=== PATIENT | male | born 1935 | race Caucasian/White ===

== ENCOUNTER 2019-05-12 16:11 | Emergency (ER) | payer MEDICARE ==
--- NOTE | 2019-05-12 16:21 | ED Physician Documentation ---
History of Present Illness - Stated complaint Stated Complaint: LFT WRIST INJ - Chief complaint Chief Complaint: Ext Problem - History obtained from History obtained from: Patient - History of Present Illness Timing: Prior to arrival - Additonal information Additional information: Patient is a right-handed 84-year-old male with history of hypertension presenting with isolated left wrist injury after accidental fall backwards onto an outstretched hand just prior to arrival. Patient reports he tripped over a hose and tried to catch himself. Patient denies striking of head or loss of consciousness, as well as any other injuries. 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 Patient does have limited range of motion due to deformity at that location. No abrasions or lacerations. No anticoagulants except for baby aspirin. No other improving or worsening factors noted. Review of Systems Skin: denies: Abrasion (s), Laceration (s) Musculoskeletal: reports: Extremity pain, Joint pain, Joint swelling. denies: Extremity swelling PD PAST MEDICAL HISTORY - Past Medical History Past Medical History: Yes Cardiovascular: Hypertension - Past Surgical History Past Surgical History: No - Present Medications Home Medications: Ambulatory Orders Medication Instructions Recorded Confirmed Hydrocodone/Acetaminophen 1 - 2 each PO Q6H PRN #14 tablet 05/12/19 [Hydrocodon-Acetaminophen 5-325] - Allergies Allergies/Adverse Reactions: Allergies Allergy/AdvReac Type Severity Reaction Status Date / Time Penicillins AdvReac Anaphylaxis Verified 05/12/19 16:19 PD ED PE NORMAL - Vitals Vital signs reviewed: Yes - General General: Alert and oriented X 3, No acute distress, Well developed/nourished - HEENT HEENT: Atraumatic, Moist mucous membranes - Cardiac Cardiac: Strong equal pulses - Respiratory Respiratory: No respiratory distress - Derm Derm: Normal color, Warm and dry, No rash - Extremities Extremities: No: No deformity ([place]-neck deformity to left wrist with tenderness to palpation on the ventral aspect. Remainder of left upper extremity within normal limits.), No tenderness to palpate - Neuro Neuro: Alert and oriented X 3, No motor deficit, No sensory deficit - Psych Psych: Normal mood, Normal affect Results - Vitals Vitals: Vital Signs - 24 hr 05/12/19 05/12/19 16:15 19:21 Temperature 35.9 C L Heart Rate 55 L 48 L Respiratory 19 18 Rate Blood Pressure 150/87 H 170/81 H O2 Saturation 99 98 Oxygen O2 Source Room air Procedures - Splint (location) Upper extremity left Splint applied by: Physician, Tech Type of splint: Fiberglass, Sugar tong Other: Patient tolerated well, No complications, Neurovascular intact, Good alignment, Sling provided - Reduction Body part reduced: Left, Wrist Fracture or dislocation: Fracture dislocation Anesthesia: Hematoma block Reduction aftercare: NV intact, Xray confirms reduction, Alignment improved, Splint applied, Sling, Patient tolerated well PD MEDICAL DECISION MAKING - ED course Complexity details: reviewed results, re-evaluated patient, considered differential, d/w patient, d/w family, d/w business system consultant ED course: Patient presenting with dislocation and fracture of left wrist. Ice applied and patient otherwise relatively comfortable. Hematoma block performed and successful reduction of dislocation was achieved and splint placed in ED without complication. Postreduction films indicated near anatomical alignment. Sling also provided. Contacted [facility] and arrange for follow-up appointment with orthopedics tomorrow. Patient and advised on sling care, splint care, medications, supportive cares, return precautions, and follow-up. Both voiced understanding and are comfortable with discharge plan. Departure - Departure Disposition: 01 Home, Self Care Clinical Impression: Radius fracture Condition: Good Instructions: ED Fx Upper Ext Prescriptions: Hydrocodone/Acetaminophen [Hydrocodon-Acetaminophen 5-325] 1 - 2 each PO Q6H PRN #14 tablet PRN Reason: pain Comments: Please keep splint in place, clean, dry. May use Nemacolin as prescribed for pain relief but do not combine with alcohol, Tylenol, or driving. If taking Nemacolin regularly, recommend stool softener or laxative to avoid constipation. If not taking Nemacolin, may use ibuprofen/Tylenol. Also recommend elevation and ice application. Please go to [facility] clinic tomorrow, specifically the [facility] on the third floor for orthopedics. Appointment is at 9 AM, but they request you being there at 8:30 AM. For questions, please contact [facility]. Otherwise, return to ED sooner if experience worsening symptoms or have other concerns. Discharge Date/Time: 05/12/19 19:26
--- NOTE | 2019-05-12 17:21 | XRAY Report ---
Reason: FOSH injury to left wrist with deformity Procedure Date: 05/12/2019 Accession Number: [id number] / [id number] Procedure: XR - Wrist 4 View LT CPT Code: FULL RESULT: EXAM: LEFT WRIST RADIOGRAPHY EXAM DATE: 05/12/2019 04:57 PM. CLINICAL HISTORY: Fall. COMPARISON: None. TECHNIQUE: 4 views. FINDINGS: Bones: There is dorsally displaced and angulated fracture through the distal left radius. There is approximately 0.8 cm dorsal displacement and 30 degrees angulation. There is likely minimally displaced fracture through the ulnar styloid. Joints: Radiocarpal articulation is maintained. Soft Tissues: No unexpected soft tissue findings. IMPRESSION: Dorsally displaced and angulated fracture through the distal left radius. Radiocarpal articulation is maintained. RADIA
--- NOTE | 2019-05-12 18:35 | XRAY Report ---
Reason: attempted reduction, splint placement Procedure Date: 05/12/2019 Accession Number: [id number] / [id number] Procedure: XR - Wrist 3 View LT CPT Code: FULL RESULT: EXAM: WRIST RADIOGRAPHY EXAM DATE: 05/12/2019 06:06 PM. CLINICAL HISTORY: Attempted reduction, splint placement. COMPARISON: WRIST 4 VIEW LT 05/12/2019 4:43 PM. TECHNIQUE: 3 views. FINDINGS: Status post reduction with near anatomical alignment between the fracture fragments. Radiocarpal joints are well aligned. IMPRESSION: Status post reduction with near anatomical alignment between the dominant fracture fragments. RADIA
[2019-05-12 19:22] VITALS: BP 170/81
== END 2019-05-12 19:26 | disposition home or self-care (01) ==
LOC: ED 16:11
DX: S52.502A Unspecified fracture of the lower end of left radius, initial encounter for closed fracture (principal); W01.0XXA Fall on same level from slipping, tripping and stumbling without subsequent striking against object, initial encounter; I10 Essential (primary) hypertension
CPT/HCPCS: 25605; 99283; 99284

== ENCOUNTER 2021-12-21 18:04 | Outpatient (CLI) | payer MEDICARE | END 2021-12-21 18:05 | disposition critical access hospital (66) | LOC: EMS 18:04 | DX: M54.50 Low back pain, unspecified (principal); W11.XXXA Fall on and from ladder, initial encounter; Y92.009 Unspecified place in unspecified non-institutional (private) residence as the place of occurrence of the external cause | CPT/HCPCS: A0425; A0429 ==

== ENCOUNTER 2021-12-21 18:19 | Emergency (ER) | payer MEDICARE ==
[2021-12-21] MEDS ORDERED: KETOROLAC 15 MG/ML VIAL IVP STA (18:26)
[2021-12-21] MEDS ORDERED: HYDROmorphone 1 MG/ML CARPUJECT IVP STA (18:26)
--- NOTE | 2021-12-21 18:27 | ED Physician Documentation ---
PD HPI Fall - Stated complaint Stated Complaint: FELL FROM LADDER, LOWER BACK PAIN - History obtained from History obtained from: Patient - Additional information Additional information: 86-year-old gentleman with hypertension was putting shingles up on a shed. He was stepping from 1 ladder to another about 6 feet up and the ladder tilted and fell. He landed on his butt and posterior left pelvis and has mild pain there at rest but significant when moving. He has not been ambulatory since the fall. He remembers the whole injury and did not hit his head. He has no other injuries. Review of Systems Ten Systems: 10 systems reviewed and negative Constitutional: denies: Fever, Chills Cardiac: denies: Chest pain / pressure, Palpitations Respiratory: denies: Dyspnea, Cough PD PAST MEDICAL HISTORY - Past Medical History Cardiovascular: Hypertension Respiratory: None Neuro: None Endocrine/Autoimmune: None GI: None : Other HEENT: None Psych: None Musculoskeletal: None Derm: None - Past Surgical History Past Surgical History: No HEENT: Tonsil/Adenoidectomy - Present Medications Home Medications: Ambulatory Orders Medication Instructions Recorded Confirmed Furosemide [Lasix] 40 mg PO DAILY 12/21/21 12/21/21 Lisinopril [Zestril] 20 mg PO DAILY 12/21/21 12/21/21 - Allergies Allergies/Adverse Reactions: Allergies Allergy/AdvReac Type Severity Reaction Status Date / Time Penicillins AdvReac Anaphylaxis Verified 12/21/21 18:31 - Social History Does the pt smoke?: No Smoking Status: Never smoker Does the pt drink ETOH?: Yes Does the pt have substance abuse?: No - Immunizations Immunizations are current?: Yes - POLST Patient has POLST: No PD ED PE NORMAL - Vitals Vital signs reviewed: Yes - General General: Alert and oriented X 3, No acute distress - HEENT HEENT: PERRL, EOMI, Other (Sequela of prior cataract repair) - Neck Neck: Supple, no meningeal sign, No bony TTP, C-Spine cleared by NEXUS criteria - Cardiac Cardiac: RRR, No murmur - Respiratory Respiratory: No respiratory distress, Clear bilaterally - Abdomen Abdomen: Non tender - Back Back: Other (Tender to the low L-spine and sacrum as well as the left posterior pelvic brim. He is tender with lateral compression of the pelvis but there is no laxity or give to it.) - Derm Derm: Normal color, Warm and dry - Extremities Extremities: Other (No left hip tenderness and no tenderness about any other major joint.) - Neuro Neuro: Alert and oriented X 3, No motor deficit, No sensory deficit, Normal speech Eye Opening: Spontaneous Motor: Obeys Commands Verbal: Oriented GCS Score: 15 - Psych Psych: Normal mood, Normal affect Results - Vitals Vitals: Vital Signs - 24 hr 12/21/21 12/21/21 12/21/21 18:26 18:55 18:56 Temperature 36.0 C L Heart Rate 86 50 L 49 L Respiratory 18 12 13 Rate Blood Pressure 194/111 H 169/73 H 169/77 H O2 Saturation 99 100 100 12/21/21 12/21/21 12/21/21 19:40 19:42 19:45 Temperature Heart Rate 51 L Respiratory 15 Rate Blood Pressure 65/44 L 72/54 L 96/50 L O2 Saturation 98 100 12/21/21 12/21/21 12/21/21 20:00 20:20 20:38 Temperature Heart Rate 45 L 18 L Respiratory 12 16 Rate Blood Pressure 120/71 138/70 H 152/80 H O2 Saturation 100 100 Oxygen O2 Source Room air - Labs Labs: Laboratory Tests 12/21/21 12/21/21 12/21/21 18:49 18:49 18:49 WBC 11.2 H RBC 3.91 L Hgb 12.4 L Hct 35.9 L MCV 91.8 MCH 31.7 H MCHC 34.5 RDW 12.7 Plt Count 121 L MPV 12.9 H Neut # (Auto) 8.8 H Lymph # (Auto) 1.3 L Garrett # (Auto) 0.9 Eos # (Auto) 0.0 Baso # (Auto) 0.0 Absolute Nucleated RBC 0.00 Nucleated RBC % 0.0 PT 12.4 INR 1.1 Sodium 138 Potassium 3.6 Chloride 103 Carbon Dioxide 26 Anion Gap 9.0 BUN 33 H Creatinine 1.4 H Estimated GFR (MDRD) 48 L Glucose 135 H Calcium 9.3 SARS-CoV-2 (PCR) Blood Type Blood Type Recheck Antibody Screen 12/21/21 12/21/21 12/21/21 18:49 19:40 20:13 WBC RBC Hgb Hct MCV MCH MCHC RDW Plt Count MPV Neut # (Auto) Lymph # (Auto) Garrett # (Auto) Eos # (Auto) Baso # (Auto) Absolute Nucleated RBC Nucleated RBC % PT INR Sodium Potassium Chloride Carbon Dioxide Anion Gap BUN Creatinine Estimated GFR (MDRD) Glucose Calcium SARS-CoV-2 (PCR) NOT DETECTED Blood Type O POSITIVE Blood Type Recheck O POSITIVE Antibody Screen NEGATIVE 12/21/21 20:21 WBC RBC Hgb 10.7 L Hct 31.3 L MCV MCH MCHC RDW Plt Count MPV Neut # (Auto) Lymph # (Auto) Garrett # (Auto) Eos # (Auto) Baso # (Auto) Absolute Nucleated RBC Nucleated RBC % PT INR Sodium Potassium Chloride Carbon Dioxide Anion Gap BUN Creatinine Estimated GFR (MDRD) Glucose Calcium SARS-CoV-2 (PCR) Blood Type Blood Type Recheck Antibody Screen - Rads (name of study) CT of the head and cervical spine are without evidence of acute trauma Radiology: EMP read contemporaneously CT of the abdomen pelvis shows a posttraumatic pelvic hematoma with the otherwise mentioned pelvic fractures Radiology: EMP read contemporaneously CT of the chest with contrast is without evidence of acute trauma Radiology: EMP read contemporaneously PD MEDICAL DECISION MAKING - ED course ED course: CT of the lumbar spine and pelvis demonstrates a right ischial ramus fracture, comminuted fracture of the right pubic body and superior ramus, intra-articular fracture involving the left anterior acetabulum, and zone 1 and zone 2 left sacral fractures 86-year-old status post fall from a ladder with seemingly isolated pelvic and low back complaints. CT imaging as above. We had called [facility] for potential transfer given the multiple pelvic fractures. I was called back into the room around 7:45 PM as he became hypotensive and generally not feeling well. Jerson blood pressure was around 60/40 and he was modestly bradycardic with this in the high 40s. Fast scan was done at that time and negative for free fluid or pericardial effusion. A second line was placed and fluids were hung. Blood pressure seemed to rebound normally without issue. He was mentating fine. He never became tachycardic. His pain was controlled. We will go back over to CT to complete haney scan given the hemodynamic instability but suspect this was a vagal reaction. H&H repeat was ordered as well. Recheck vitals 7:57 PM, blood pressure 121/82, heart rate 52. Accepted to [facility] by Dr. Julien Casarez approximately 8 PM, covers were completed. He will go via [employer]. [facility] request repeat call back when CT haney scan is done [phone] On my "wet Read" of his haney scan, it looks like he does have a pelvic hematoma. [facility] was updated and I spoke with Dr. Wilson again. After completion of the CT haney scan he was placed in a pelvic binder with the assistance of [employer] crew. - Critical Care Time(min): 40 Time Includes: Direct patient care, Review records, Reassess patient, Document care, Coordinate care, Medical consult, Family consult for [facility] Data interpretation: Labs, Pulse ox Procedures included in critical care time: Peripheral IV Departure - Departure Disposition: 02 Transfer Acute Care Hosp Clinical Impression: Fall from height of greater than 3 feet, Transient hypotension, Pelvic hematoma in male Left acetabular fracture Qualifiers: Encounter type: initial encounter Sublocation of acetabulum: unspecified portion of acetabulum Fracture type: closed Fracture alignment: nondisplaced Qualified Code(s): S32.402A - Unspecified fracture of left acetabulum, initial encounter for closed fracture Sacral fracture Qualifiers: Encounter type: initial encounter Zone of sacrum fracture: unspecified portion of sacrum Fracture type: closed Qualified Code(s): S32.10XA - Unspecified fracture of sacrum, initial encounter for closed fracture Pubic ramus fracture Qualifiers: Encounter type: initial encounter Fracture type: closed Laterality: unspecified laterality Qualified Code(s): S32.599A - Other specified fracture of unspecified pubis, initial encounter for closed fracture Condition: Serious Discharge Date/Time: 12/21/21 20:38
[2021-12-21 18:56] LABS: BASOPHILS % (AUTO) 0.4 %; EOSINOPHILS % (AUTO) 0.4 %; HCT - HEMATOCRIT 35.9 % (42.0-52.0); HGB - HEMOGLOBIN 12.4 g/dL (14.0-18.0); LYMPHOCYTES # (AUTO) 1.3 10^3/uL (1.5-3.5); LYMPHOCYTES % (AUTO) 11.9 %; MEAN CORPUSCULAR HEMOGLOBIN 31.7 pg (27.0-31.0); MEAN CORPUSCULAR HGB CONC 34.5 g/dL (32.0-36.0); MEAN CORPUSCULAR VOLUME 91.8 fL (80.0-94.0); MEAN PLATELET VOLUME 12.9 fL (7.4-11.4); MONOCYTES # (AUTO) 0.9 10^3/uL (0.0-1.0); MONOCYTES % (AUTO) 7.7 %; NEUTROPHILS # (AUTO) 8.8 10^3/uL (1.5-6.6); NEUTROPHILS % (AUTO) 78.6 %; PLT - PLATELET COUNT 121 10^3/uL (130-450); RED BLOOD COUNT 3.91 10^6/uL (4.70-6.10); RED CELL DISTRIBUTION WIDTH 12.7 % (12.0-15.0); WHITE BLOOD COUNT 11.2 x10^3/uL (4.8-10.8)
[2021-12-21 19:03] LABS: CALCIUM 9.3 mg/dL (8.5-10.3); CREATININE 1.4 mg/dL (0.6-1.2); POTASSIUM 3.6 mmol/L (3.5-5.0)
--- NOTE | 2021-12-21 19:04 | CT Report ---
PROCEDURE: LUMBAR SPINE WO INDICATIONS: Back and Left posterior pelvic pain p fall TECHNIQUE: Noncontrast 3 mm thick sections acquired from the T12 level to the sacrum. Sagittal and coronal refo rmats were constructed. For radiation dose reduction, the following was used: automated exposure co ntrol, adjustment of mA and/or kV according to patient size. COMPARISON: None. FINDINGS: Image quality: Excellent. Bones: There is normal bony alignment. Mildly displaced zone 1 and zone 2 fractures of the left sac rum. No acute vertebral body compression fractures. No suspicious lytic or blastic bony lesions. No pars defects. Mild degenerative disc changes noted throughout the lumbar spine. Moderate L4-L5 and L 5-S1 facet hypertrophy. Mild L2-L3 and L3-L4 facet hypertrophy. Soft tissues: No retroperitoneal masses or hematomas. Visualized aorta is normal in caliber. IMPRESSION: Zone 1 and zone 2 left sacral fracture. Reviewed by: Jackelin Lock MD, PhD on 12/21/2021 7:03 PM PST Approved by: Jackelin Lock MD, PhD on 12/21/2021 7:03 PM PST Station ID: [email or web address]
[2021-12-21 19:12] LABS: INR 1.1 (0.8-1.2); PT - PROTHROMBIN TIME 12.4 secs (9.9-12.6)
--- NOTE | 2021-12-21 19:12 | CT Report ---
PROCEDURE: PELVIS WO INDICATIONS: Back and Left posterior pelvic pain p fall TECHNIQUE: Noncontrast 3 mm axial sections acquired through the bony pelvis, with coronal and sagittal reformatt ing. For radiation dose reduction, the following was used: automated exposure control, adjustment of mA and/or kV according to patient size. COMPARISON: None. FINDINGS: Image quality: Excellent. Bones: Comminuted fracture of the left ala of sacrum with fracture lucencies extending the left sacr al neural foramina. Comminuted fracture involving the anterior left acetabulum extending into the lef t hip joint and into the root of the left pubic ramus. There is a comminuted fracture involving the r ight pubic body and superior ramus. Fracture involving the right ischial ramus. Buckle fracture invol ving the junction of the left inferior pubic ramus and the left ischial ramus. Hemorrhage noted in the anterior-inferior pelvis in the region of the pelvic fractures. IMPRESSION: 1. Comminuted, intra-articular fracture involving the anterior left acetabulum. 2. Comminuted fracture involving the right pubic body and superior ramus. 3. Right ischial ramus fracture. 4. Left zone 2 sacral fracture. Reviewed by: Jackelin Lock MD, PhD on 12/21/2021 7:09 PM PST Approved by: Jackelin Lock MD, PhD on 12/21/2021 7:09 PM PST Station ID: [id number]
[2021-12-21] MEDS ORDERED: SODIUM CHLORIDE 0.9% 1,000 ML IV STA (19:44)
[2021-12-21] MEDS ORDERED: IOVERSOL 320 100 ML VIAL IVP ONE ×2 (19:56→20:41)
[2021-12-21 20:26] LABS: HCT - HEMATOCRIT 31.3 % (42.0-52.0); HGB - HEMOGLOBIN 10.7 g/dL (14.0-18.0)
[2021-12-21 20:39] VITALS: BP 152/80
--- NOTE | 2021-12-21 21:06 | CT Report ---
PROCEDURE: CHEST W INDICATIONS: IV only, Trauma CONTRAST: IV CONTRAST: Optiray 320 ml: 100 PO CONTRAST: *NO PO CONTRAST TECHNIQUE: After the administration of intravenous contrast, 1 mm axial images were acquired from the pulmonary apices through the posterior costophrenic angles. Axial 5 mm soft tissue kernel reconstructions were performed as well as 8 mm axial MIP and coronal and sagittal 5 mm reformations. For radiation dose reduction, the following was used: automated exposure control, adjustment of mA and/or kV according to patient size. COMPARISON: None. FINDINGS: Image quality: Excellent. Lungs and pleura: No acute air space opacities. Incidental note is made of a posterior 4 mm calcifi ed granuloma left apex. No pleural effusions or pneumothorax. Central and peripheral airways are pat ent and normal in caliber. Mediastinum: Heart size is normal. No pericardial effusion. No mediastinal or hilar adenopathy by size criteria. Thoracic aorta and central pulmonary arteries are normal in size. Esophagus is jessica l in caliber. No hiatal hernia. Bones and chest wall: No suspicious bony lesions. No vertebral body compression fractures. No axil jose or supraclavicular adenopathy by size criteria. The thyroid is normal in size and there are no incidental findings.. Abdomen: Visualized upper abdominal solid organs appear normal. Upper abdominal bowel loops are nor mal in caliber. IMPRESSION: No trauma found, no evidence of pneumothorax or hemothorax. 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 CLINICAL RECOMMENDATION STATEMENTS: In patients <35 years with an ITN detected on CT, MRI, or extrathyroidal ultrasound, the Committee re commends further evaluation with dedicated thyroid ultrasound if the nodule is "e1 cm and has no susp icious imaging features, and if the patient has normal life expectancy. In patients "e35 years with an ITN detected on CT, MRI, or extrathyroidal ultrasound, the Committee r ecommends further evaluation with dedicated thyroid ultrasound if the nodule is "e1.5 cm and has no s uspicious imaging features, and if the patient has normal life expectancy. (ACR, 2014) Reviewed by: Teddy Lindsey MD on 12/21/2021 9:05 PM PST Approved by: Teddy Lindsey MD on 12/21/2021 9:05 PM PST Station ID: [id number]
--- NOTE | 2021-12-21 21:15 | CT Report ---
PROCEDURE: HEAD WO INDICATIONS: Trauma TECHNIQUE: Noncontrast 4.5 mm thick angled axial sections acquired from the foramen magnum to the vertex. For r adiation dose reduction, the following was used: automated exposure control, adjustment of mA and/or kV according to patient size. COMPARISON: None. FINDINGS: Image quality: Excellent. CSF spaces: Basal cisterns are patent. No extra-axial fluid collections. Ventricles are normal in size and shape. Brain: No midline shift. No intracranial masses or hemorrhage. Bernal-white matter interface is norm al. Skull and face: Calvarium and visualized facial bones are intact, without suspicious lesions. Sinuses: Visualized sinuses and mastoids are clear. IMPRESSION: No trauma found. Reviewed by: Teddy Lindsey MD on 12/21/2021 9:13 PM [facility] Approved by: Teddy Lindsey MD on 12/21/2021 9:13 PM [facility] Station ID: [id number]
--- NOTE | 2021-12-21 21:15 | CT Report ---
PROCEDURE: CERVICAL SPINE WO INDICATIONS: Trauma TECHNIQUE: Noncontrast 3 mm thick sections acquired from the skull base to the T4 level. Sagittal and coronal r eformats were then constructed. For radiation dose reduction, the following was used: automated exp osure control, adjustment of mA and/or kV according to patient size. COMPARISON: None. FINDINGS: Image quality: Excellent. Bones: No fractures or dislocations. Visualized superior ribs are intact. Soft tissues: Prevertebral soft tissues are normal in thickness. No paravertebral hematomas. No ap ical pneumothoraces. 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 Reviewed by: Teddy Lindsey MD on 12/21/2021 9:14 PM [facility] Approved by: Teddy Lindsey MD on 12/21/2021 9:14 PM PST Station ID: [id number]
--- NOTE | 2021-12-21 21:23 | CT Report ---
PROCEDURE: Abdomen/Pelvis W INDICATIONS: Trauma CONTRAST: IV CONTRAST: Optiray 320 ml: 100 PO CONTRAST: *NO PO CONTRAST TECHNIQUE: After the administration of contrast, 5 mm thick sections acquired from the diaphragms to the sym physis. 5 mm thick coronal and sagittal reformats were acquired. For radiation dose reduction, the following was used: automated exposure control, adjustment of mA and/or kV according to patient size . COMPARISON: None. FINDINGS: Image quality: Excellent. ABDOMEN: Lung bases: Lung bases are clear. Heart size is normal. Solid organs: Liver and spleen are normal in size and enhancement. Gallbladder appears normal Bili cong system is non dilated. Pancreas enhances normally. No adrenal nodules. Kidneys demonstrate nor mal size and enhancement, without hydronephrosis. There are are several water density renal cortical cysts, posteriorly on the right and 2 at the mid and lower thirds of the left kidney posteriorly. No solid mass lesion is suspected. Peritoneum and bowel: Bowel loops demonstrate normal wall thickness and caliber. No free fluid or a ir. Nodes and vessels: No retroperitoneal or mesenteric adenopathy by size criteria. Aorta and inferior vena cava are normal in size. Miscellaneous: No ventral hernias. PELVIS: Genitourinary: Bladder wall thickness is normal. Miscellaneous: No inguinal hernias or adenopathy. Note is made of a focal hematoma within the right pelvis measuring approximately 4.5 x 8.0 cm associated with a right symphysis pubis fracture and and inferior right obturator ring fracture. This slightly displaces the bladder leftward. In addition th ere is a nondisplaced fracture involving the lateral inferior left sacrum. Bones: No suspicious bony lesions. No vertebral body compression fractures. IMPRESSION: No visceral trauma found but there is a finding of a right symphysis pubis fracture and a inferior right obturator ring fracture. In addition there is a lateral inferior left sacrum fractur e without hematoma. The posttraumatic hematoma on the right mildly displaces the bladder from right t o left. No active bleeding at time of CT scanning is found. Reviewed by: Teddy Lindsey MD on 12/21/2021 9:21 PM PST Approved by: Teddy Lindsey MD on 12/21/2021 9:21 PM PST Station ID: [id number]
== END 2021-12-21 20:38 | disposition short-term general hospital (02) ==
LOC: EDUNIT# → EDBD → ED 18:19
DX: S32.511A Fracture of superior rim of right pubis, initial encounter for closed fracture (principal); S32.402A Unspecified fracture of left acetabulum, initial encounter for closed fracture; S32.601A Unspecified fracture of right ischium, initial encounter for closed fracture; S52.90XA Unspecified fracture of unspecified forearm, initial encounter for closed fracture; S32.119A Unspecified Zone I fracture of sacrum, initial encounter for closed fracture; S32.129A Unspecified Zone II fracture of sacrum, initial encounter for closed fracture; W11.XXXA Fall on and from ladder, initial encounter; Y93.H3 Activity, building and construction; I10 Essential (primary) hypertension; Z20.822 Contact with and (suspected) exposure to COVID-19
CPT/HCPCS: 36415; 70450; 71260; 72125; 72131; 72192; 74177; 80048; 85014; 85018; 85025; 85610; 86850; 86900; 86901; 87635; 96374; 99285; 99291; J1170; Q9967

== ENCOUNTER 2022-08-04 20:55 | Outpatient (CLI) | payer MEDICARE | END 2022-08-04 20:56 | disposition critical access hospital (66) | LOC: EMS 20:55 | DX: R53.1 Weakness (principal); R41.82 Altered mental status, unspecified; R47.01 Aphasia; R29.810 Facial weakness; I10 Essential (primary) hypertension | CPT/HCPCS: A0425; A0429 ==

== ENCOUNTER 2022-08-04 21:05 | Emergency (ER) | payer MEDICARE ==
--- NOTE | 2022-08-04 21:15 | ED Physician Documentation ---
History of Present Illness - Stated complaint Stated Complaint: STROKE - Chief complaint Chief Complaint: Neuro - History obtained from History obtained from: EMS - Additonal information Additional information: 87-year-old man brought in by EMS with reported LSN 35 minutes prior to arrival. Patient was found at the foot of some stairs with aphasia, facial droop, RUE/RLE weakness. ems called and patient was stroke code on arrival, taken straight to CT. further initial history limited by patient acuity Review of Systems Unable to obtain: Unresponsive PD PAST MEDICAL HISTORY - Past Medical History Cardiovascular: Hypertension Respiratory: None Neuro: None Endocrine/Autoimmune: None GI: None : Other HEENT: None Psych: None Musculoskeletal: None Derm: None - Past Surgical History Past Surgical History: No HEENT: Tonsil/Adenoidectomy - Present Medications Home Medications: Ambulatory Orders Medication Instructions Recorded Confirmed Furosemide [Lasix] 40 mg PO DAILY 12/21/21 12/21/21 Lisinopril [Zestril] 20 mg PO DAILY 12/21/21 12/21/21 - Allergies Allergies/Adverse Reactions: Allergies Allergy/AdvReac Type Severity Reaction Status Date / Time Penicillins AdvReac Anaphylaxis Verified 08/04/22 21:09 - Social History Does the pt smoke?: No Smoking Status: Never smoker Does the pt drink ETOH?: Yes Does the pt have substance abuse?: No - Immunizations Immunizations are current?: Yes - POLST Patient has POLST: No PD ED PE NORMAL - Vitals Vital signs reviewed: Yes - General General: Well developed/nourished, Other (alert, lying in bed with eyes opening spontaneously, garbled speech) - HEENT HEENT: Atraumatic, PERRL, EOMI, Moist mucous membranes, Pharynx benign, Other (R facial droop) - Neck Neck: Supple, no meningeal sign - Cardiac Cardiac: RRR - Respiratory Respiratory: No respiratory distress, Clear bilaterally - Abdomen Abdomen: Non tender, Non distended - Derm Derm: Normal color, Warm and dry - Extremities Extremities: No deformity - Neuro Neuro: Other (NIHSS 10 (Facial palsy3, right leg motor drift2, Language3, dysarthria2)) Results - Vitals Vitals: Vital Signs - 24 hr 08/04/22 08/04/22 08/04/22 21:07 21:30 22:10 Temperature 36.7 C Heart Rate 104 H 77 73 Respiratory 20 18 18 Rate Blood Pressure 156/79 H 156/79 H 167/92 H O2 Saturation 97 98 98 08/04/22 23:02 Temperature Heart Rate 76 Respiratory 18 Rate Blood Pressure 165/86 H O2 Saturation 98 Oxygen O2 Source Room air - EKG (time done) 2121 Rate: Rate (enter#) (80) Rhythm: NSR Intervals: RBBB, Other (LAFB) QRS: LVH - Labs Labs: Laboratory Tests 08/04/22 08/04/22 08/04/22 21:41 21:41 21:41 WBC 8.6 RBC 3.86 L Hgb 12.0 L Hct 36.3 L MCV 94.0 MCH 31.1 H MCHC 33.1 RDW 13.1 Plt Count 146 MPV 12.7 H Neut # (Auto) 6.2 Lymph # (Auto) 1.3 L [place] # (Auto) 1.0 Eos # (Auto) 0.1 Baso # (Auto) 0.1 Absolute Nucleated RBC 0.00 Nucleated RBC % 0.0 PT 12.1 INR 1.1 Sodium 140 Potassium 3.9 Chloride 108 Carbon Dioxide 22 Anion Gap 10.0 BUN 30 H Creatinine 1.3 H Estimated GFR (MDRD) 52 L Glucose 120 H Calcium 9.2 Total Bilirubin 0.5 AST 25 ALT 23 Alkaline Phosphatase 102 Total Protein 7.0 Albumin 4.2 Globulin 2.8 Albumin/Globulin Ratio 1.5 Lipase 31 SARS-CoV-2 (PCR) 08/04/22 22:39 WBC RBC Hgb Hct MCV MCH MCHC RDW Plt Count MPV Neut # (Auto) Lymph # (Auto) [place] # (Auto) Eos # (Auto) Baso # (Auto) Absolute Nucleated RBC Nucleated RBC % PT INR Sodium Potassium Chloride Carbon Dioxide Anion Gap BUN Creatinine Estimated GFR (MDRD) Glucose Calcium Total Bilirubin AST ALT Alkaline Phosphatase Total Protein Albumin Globulin Albumin/Globulin Ratio Lipase SARS-CoV-2 (PCR) NOT DETECTED PD MEDICAL DECISION MAKING - ED course ED course: Dr. Mcnamara - stroke neurology at 9:25pm . will jump on video to see patient. 9:38pm - d/w radiology - no bleed, no midline shift on non con head CT. no contraindication to tnk. 9:40pm - Dr. Mcnamara d/w patient risks and benefits, decision made to give tenecteplase. tPA not available at our facility. 10pm - Dr. Mcnamara does not see MCA occlusion on CTA. will f/u with radiology but likely not thrombectomy candidate. Possible transfer to [facility]. Dr. Mcnamara will call for beds. 10:30pm - Dr. Mcnamara obtained bed at [facility] for transfer. 11pm - Dr. Alfaro, foamite mixer at - Critical Care Time Includes: Direct patient care, Review records, Reassess patient, Document care, Coordinate care, Medical consult, Family consult for tx dec Data interpretation: Labs, See progress note Procedures included in critical care time: Peripheral IV, Blood draw Departure - Departure Disposition: 02 Transfer Acute Care Hosp Clinical Impression: Stroke
--- NOTE | 2022-08-04 21:37 | CT Report ---
PROCEDURE: Head W/O Stroke Protocol INDICATIONS: stroke TECHNIQUE: Noncontrast 4.5 mm thick angled axial sections acquired from the foramen magnum to the vertex. For r adiation dose reduction, the following was used: automated exposure control, adjustment of mA and/or kV according to patient size. COMPARISON: 12/21/2021 FINDINGS: Image quality: Excellent. CSF spaces: Basal cisterns are patent. No extra-axial fluid collections. The ventricles are symmet maricel in size and shape. Brain: No intracranial bleeds or masses. There is cerebral volume loss for age, with resultant vent ricular and sulcal prominence. There are periventricular and deep white matter chronic small vessel ischemic changes. There is intracranial internal carotid artery atherosclerosis. Skull and face: Calvarium and visualized facial bones appear intact, without suspicious lesions. Sinuses: Retention cysts are seen in bilateral maxillary sinuses. Bilateral mastoids are clear. IMPRESSION: No CT evidence of acute intracranial abnormalities. No significant changes from previous study. No CT contraindications for TPA therapy. Findings were reported to ordering ED physician at 9:35 PM on 08/04/2022. Reviewed by: Carlos Enrique Crenshaw MD on 08/04/2022 9:35 PM PDT Approved by: Carlos Enrique Crenshaw MD on 08/04/2022 9:35 PM PDT Station ID: [id number]
[2022-08-04] MEDS ORDERED: TENECTEPLASE 50 MG/10 ML VIAL IVP STA (21:41)
[2022-08-04 21:47] LABS: BASOPHILS # (AUTO) 0.1 10^3/uL (0.0-0.1); BASOPHILS % (AUTO) 0.6 %; EOSINOPHILS # (AUTO) 0.1 10^3/uL (0.0-0.7); EOSINOPHILS % (AUTO) 0.9 %; HCT - HEMATOCRIT 36.3 % (42.0-52.0); LYMPHOCYTES # (AUTO) 1.3 10^3/uL (1.5-3.5); MEAN CORPUSCULAR HEMOGLOBIN 31.1 pg (27.0-31.0); MEAN CORPUSCULAR HGB CONC 33.1 g/dL (32.0-36.0); MEAN PLATELET VOLUME 12.7 fL (7.4-11.4); MONOCYTES % (AUTO) 11.5 %; NEUTROPHILS # (AUTO) 6.2 10^3/uL (1.5-6.6); NEUTROPHILS % (AUTO) 71.7 %; PLT - PLATELET COUNT 146 10^3/uL (130-450); RED BLOOD COUNT 3.86 10^6/uL (4.70-6.10); RED CELL DISTRIBUTION WIDTH 13.1 % (12.0-15.0); WHITE BLOOD COUNT 8.6 x10^3/uL (4.8-10.8)
[2022-08-04 21:59] LABS: ALBUMIN 4.2 g/dL (3.2-5.5); ALBUMIN/GLOBULIN RATIO 1.5 (1.0-2.2); BILIRUBIN,TOTAL 0.5 mg/dL (0.2-1.0); CALCIUM 9.2 mg/dL (8.5-10.3); CREATININE 1.3 mg/dL (0.6-1.2); INR 1.1 (0.8-1.2); POTASSIUM 3.9 mmol/L (3.5-5.0); PT - PROTHROMBIN TIME 12.1 secs (9.9-12.6)
--- NOTE | 2022-08-04 22:03 | CT Report ---
PROCEDURE: ANGIO NECK W INDICATIONS: stroke CONTRAST: Omni 300 80ml TECHNIQUE: After the administration of intravenous contrast, 1.5 mm axial sections acquired from the aortic arch to the [place]. Coronal 3-D maximum intensity projection (MIP) and/or volume rendering ref ormats were then performed. For radiation dose reduction, the following was used: automated exposur e control, adjustment of mA and/or kV according to patient size. COMPARISON: None. FINDINGS: Image quality: Excellent. Carotid system: The great vessels demonstrate a conventional anatomy as they arise from the aortic a rch. The origins of the common carotid arteries appear patent. The common carotid arteries demonstr ate normal calibers and courses. Moderate amount of atherosclerotic calcifications are noted involvin g bilateral distal common carotid artery/carotid bulbs and origin of bilateral internal carotid arter ies. The internal carotid arteries demonstrate normal caliber and course. Posterior circulation: The origins of the vertebral arteries appear patent. The more superior porti ons of the vertebral arteries demonstrate normal course and caliber. They join to form a normal appe aring basilar artery. Soft tissues: Visualized neck soft tissues demonstrate no suspicious abnormalities. The thyroid is normal in size and there are no incidental findings. Bones: No suspicious bony lesions. 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 IMPRESSION: 1. Moderate atherosclerotic calcifications involving bilateral distal common carotid artery/origins o f the internal carotid arteries with less than 50% stenosis. No hemodynamically significant stenosis is seen in rest of the carotid arteries. 2. No hemodynamically significant stenosis is seen in bilateral vertebral arteries. The estimate of stenosis included in the report of the imaging study was calculated using the NASCET method CLINICAL RECOMMENDATION STATEMENTS: In patients <35 years with an ITN detected on CT, MRI, or extrathyroidal ultrasound, the Committee re commends further evaluation with dedicated thyroid ultrasound if the nodule is "e1 cm and has no susp icious imaging features, and if the patient has normal life expectancy. In patients "e35 years with an ITN detected on CT, MRI, or extrathyroidal ultrasound, the Committee r ecommends further evaluation with dedicated thyroid ultrasound if the nodule is "e1.5 cm and has no s uspicious imaging features, and if the patient has normal life expectancy. (ACR, 2014) Reviewed by: Carlos Enrique Crenshaw MD on 08/04/2022 10:01 PM PDT Approved by: Carlos Enrique Crenshaw MD on 08/04/2022 10:01 PM PDT Station ID: [id number]
--- NOTE | 2022-08-04 22:04 | CT Report ---
PROCEDURE: ANGIO HEAD W/WO INDICATIONS: stroke CONTRAST: Omni 300 80ml TECHNIQUE: Precontrast 4.5 mm thick angled axial sections acquired from the foramen magnum to the vertex. Afte r the administration of intravenous contrast, 1 mm thick sections acquired through the [place] is. Postcontrast 4.5 mm thick sections then re-acquired from the foramen magnum to the vertex. 3-di mensional nqlmsyc-dpclsuohq-jzmzcfkxrq (MIP) and/or volume rendering reformats were acquired of the c entral intracranial vasculature. For radiation dose reduction, the following was used: automated ex posure control, adjustment of mA and/or kV according to patient size. COMPARISON: None. FINDINGS: Image quality: Excellent. Anterior circulation: Intracranial internal carotid arteries are normal in size and flow. The flow within the paired anterior cerebral arteries is normal and symmetric. The flow within the middle cer ebral arteries is normal and symmetric. The anterior communicating artery is seen. No aneurysms are seen. Posterior circulation: Visualized portions of the vertebral arteries demonstrate normal caliber, and join to form a normal appearing basilar artery. Flow within the posterior cerebral arteries is norm al and symmetric. No aneurysms are seen. CSF spaces: Ventricles are normal in size and shape. Basal cisterns are patent. No extra-axial flu id collections. Brain: No midline shift. No intracranial bleeds or masses. Bernal-white matter interface appears int act. Skull and face: Calvarium and facial bones appear intact, without suspicious lesions. Sinuses: Visualized sinuses and mastoids are clear. IMPRESSION: No hemodynamically significant stenosis or aneurysm is seen in visualized intracranial circulation. N o area of abnormal intracranial enhancement. Reviewed by: Carlos Enrique Aguilar MD on 08/04/2022 10:03 PM PDT Approved by: Carlos Enrique Aguilar MD on 08/04/2022 10:03 PM PDT Station ID: [id number]
--- NOTE | 2022-08-04 22:05 | CT Report ---
PROCEDURE: CERVICAL SPINE WO INDICATIONS: POSSIBLE TRAUMA TECHNIQUE: Noncontrast 3 mm thick sections acquired from the skull base to the T4 level. Sagittal and coronal r eformats were then constructed. For radiation dose reduction, the following was used: automated exp osure control, adjustment of mA and/or kV according to patient size. COMPARISON: None. FINDINGS: Image quality: Excellent. Bones: No fractures or dislocations. Straightening of normal cervical lordosis is seen. There is lo ss of disc height, degenerative endplate changes and dorsal disc osteophyte complex formation through out cervical spine. Bilateral facet hypertrophic changes also noted throughout cervical spine. There is mild to moderate central canal stenosis and mild bilateral neural foraminal narrowing most notably at C4-5 and C5-6 levels. Visualized superior ribs are intact. Soft tissues: Prevertebral soft tissues are normal in thickness. No paravertebral hematomas. No ap ical pneumothoraces. IMPRESSION: 1. No acute cervical spine fracture or dislocation. 2. Degenerative disc disease throughout cervical spine as above. Reviewed by: Carlos Enrique Aguilar MD on 08/04/2022 10:04 PM PDT Approved by: Carlos Enrique Aguilar MD on 08/04/2022 10:04 PM PDT Station ID: [id number]
--- NOTE | 2022-08-04 22:13 | CT Report ---
PROCEDURE: CHEST W INDICATIONS: STROKE, POSSIBLE FALL CONTRAST:Omni 300 80ml TECHNIQUE: After the administration of intravenous contrast, 1 mm axial images were acquired from the pulmonary apices through the posterior costophrenic angles. Axial 5 mm soft tissue kernel reconstructions were performed as well as 8 mm axial MIP and coronal and sagittal 5 mm reformations. For radiation dose reduction, the following was used: automated exposure control, adjustment of mA and/or kV according to patient size. COMPARISON: 12/21/2021. FINDINGS: Image quality: Excellent. Lungs and pleura: No acute air space opacities. Scattered scarring/atelectasis in periphery of bilat eral mid to lower lung st are seen. No pleural effusions or pneumothorax. Central and peripheral airways are patent and normal in caliber. Mediastinum: Heart size is enlarged. No pericardial effusion. Moderate atherosclerotic calcificati ons are seen in coronary vessels. No mediastinal or hilar adenopathy by size criteria. Mild ascending thoracic aortic aneurysm is seen measures up to 4 cm in largest AP diameter. Central pulmonary arter ies are normal in size. Esophagus is normal in caliber. No hiatal hernia. Bones and chest wall: No suspicious bony lesions. No vertebral body compression fractures. Degenera tive disc disease throughout thoracic spine is seen. No axillary or supraclavicular adenopathy by siz e criteria. The thyroid is normal in size and there are no incidental findings.. Abdomen: Visualized upper abdominal solid organs appear normal. Upper abdominal bowel loops are nor mal in caliber. IMPRESSION: 1. No evidence of acute solid organ injury in the chest. No mediastinal hematoma or fluid. No mediast inal or hilar lymphadenopathy. Cardiomegaly, no pericardial effusion. Moderate atherosclerotic diseas e. 2. Mild ascending thoracic aortic aneurysm measures up to 4 cm in largest AP diameter. No aortic diss ection. 3. Scattered atelectasis in periphery of bilateral mid to lower lung st. No pulmonary contusion, focal infiltrate, pleural effusion or pneumothorax. Airway is patent. 4. No gross acute rib fractures. No acute vertebral body compression fractures. CLINICAL RECOMMENDATION STATEMENTS: In patients <35 years with an ITN detected on CT, MRI, or extrathyroidal ultrasound, the Committee re commends further evaluation with dedicated thyroid ultrasound if the nodule is "e1 cm and has no susp icious imaging features, and if the patient has normal life expectancy. In patients "e35 years with an ITN detected on CT, MRI, or extrathyroidal ultrasound, the Committee r ecommends further evaluation with dedicated thyroid ultrasound if the nodule is "e1.5 cm and has no s uspicious imaging features, and if the patient has normal life expectancy. (ACR, 2014) Reviewed by: Carlos Enrique Crenshaw MD on 08/04/2022 10:12 PM PDT Approved by: Carlos Enrique Crenshaw MD on 08/04/2022 10:12 PM PDT Station ID: [id number]
--- NOTE | 2022-08-04 22:20 | CT Report ---
PROCEDURE: ABDOMEN/PELVIS W INDICATIONS: Possible fall [Exam in delay phase, added after CTA head/neck scans completed] Priors: 12/21/21 CONTRAST: Omni 300 80ml TECHNIQUE: After the administration of IV contrast, 5 mm thick sections acquired from the diaphragms to the symp hysis. 5 mm thick coronal and sagittal reformats were acquired. For radiation dose reduction, the f ollowing was used: automated exposure control, adjustment of mA and/or kV according to patient size. COMPARISON: 12/21/2021. FINDINGS: Image quality: Excellent. ABDOMEN: Lung bases: Bibasilar dependent atelectasis is seen. Heart size is enlarged, no pericardial effusion . Solid organs: Liver and spleen are normal in size and enhancement. Gallbladder is within normal barros its. Biliary system is non dilated. Pancreas enhances normally. No adrenal nodules. Kidneys demon strate normal size and enhancement, without hydronephrosis. Bilateral renal cysts are seen. No perin ephric fluid. Peritoneum and bowel: Bowel loops demonstrate normal wall thickness and caliber. No free fluid or a ir. Nodes and vessels: No retroperitoneal or mesenteric adenopathy by size criteria. Aorta and inferior vena cava are normal in size. Moderate atherosclerotic calcifications are noted in abdominal aorta. Miscellaneous: No ventral hernias. PELVIS: Genitourinary: Bladder wall thickness is normal. Miscellaneous: No inguinal hernias or adenopathy. Bones: No suspicious bony lesions. No acute fracture or dislocation. Healing fractures involving rig ht superior and inferior pubic rami as well as left inferior pubic ramus are seen No vertebral body c ompression fractures. IMPRESSION: 1. No evidence of acute solid organ injury in abdomen or pelvis. No free fluid of free air. 2. No gross acute fracture or dislocation is seen in abdomen or pelvis. Healing bilateral pubic rami fracture as above. No gross acute vertebral body compression fracture. Reviewed by: Carlos Enrique Crenshaw MD on 08/04/2022 10:19 PM PDT Approved by: Carlos Enrique Crenshaw MD on 08/04/2022 10:19 PM PDT Station ID: [id number]
[2022-08-04] MEDS ORDERED: iohexoL-300 100 ML VIAL ONE (23:17)
[2022-08-05 00:39] VITALS: BP 159/89
[2022-08-05] MEDS ORDERED: iohexoL-300 100 ML VIAL IVP ONE (04:22)
== END 2022-08-05 01:08 | disposition short-term general hospital (02) ==
LOC: EDUNIT# → ED 21:05
DX: I10 Essential (primary) hypertension (principal); I63.9 Cerebral infarction, unspecified; Z20.822 Contact with and (suspected) exposure to COVID-19
CPT/HCPCS: 36415; 37195; 70450; 70496; 70498; 71260; 72125; 74177; 80053; 83690; 85025; 85610; 87635; 93005; 99291; J3101; Q9967

== ENCOUNTER 2022-10-02 14:29 | Emergency (ER) | payer MEDICARE ==
--- NOTE | 2022-10-02 14:48 | ED Physician Documentation ---
History of Present Illness - Stated complaint Stated Complaint: HIGH BP/SLURRED SPEECH - Additonal information Additional information: 87-year-old male is brought to the emergency department for evaluation of slurring of speech and difficulty with word finding that is gotten progressively worse over the last 2 days as well as elevated blood pressure. This patient was seen in this emergency department 08/04/2022 with noted aphasia, right-sided facial droop right arm and lower leg weakness. Patient obtained emergent CT imaging of the head and no bleed was found. The decision was made to give tenecteplase. The patient was then transferred to [facility]. His reports that upon discharge the patient was on Pradaxa but has been out for the last 2 days as it has not arrived in the mail. and patient report that after the stroke he has had progressive improvement and had no loss of motor strength or facial droop his speech has become more fluid and clear over the last few weeks until 2 days ago. He is denying chest pain or shortness of air. No nausea or vomiting. On presentation to the emergency department the patient is alert and well- appearing. He has some mild difficulty with slurring of words and word finding though the rest of his neurological exam is unremarkable. Review of Systems Constitutional: denies: Fever, Chills Throat: reports: Reviewed and negative Cardiac: reports: Reviewed and negative Respiratory: reports: Reviewed and negative GI: reports: Reviewed and negative : reports: Reviewed and negative Skin: reports: Reviewed and negative Musculoskeletal: reports: Reviewed and negative Neurologic: reports: Reviewed and negative Psychiatric: reports: Reviewed and negative PD PAST MEDICAL HISTORY - Past Medical History Cardiovascular: Hypertension Respiratory: None Neuro: None Endocrine/Autoimmune: None GI: None : Other HEENT: None Psych: None Musculoskeletal: None Derm: None - Past Surgical History Past Surgical History: No HEENT: Tonsil/Adenoidectomy - Present Medications Home Medications: Ambulatory Orders Medication Instructions Recorded Confirmed Furosemide [Lasix] 40 mg PO DAILY 12/21/21 12/21/21 Lisinopril [Zestril] 20 mg PO DAILY 12/21/21 12/21/21 Cholecalciferol (Vitamin D3) 1,250 mcg PO DAILY 10/02/22 10/02/22 [Vitamin D3] Dabigatran Etexilate Mesylate 150 mg PO BID #14 cap 10/02/22 [Pradaxa] Dabigatran Etexilate Mesylate 150 mg PO DAILY 10/02/22 10/02/22 [Pradaxa] Magnesium Oxide 400 mg PO DAILY 10/02/22 10/02/22 Spironolactone [Aldactone] 12.5 mg PO DAILY 10/02/22 10/02/22 Zinc Sulfate 1 cap PO DAILY 10/02/22 10/02/22 - Allergies Allergies/Adverse Reactions: Allergies Allergy/AdvReac Type Severity Reaction Status Date / Time Penicillins AdvReac Anaphylaxis Verified 08/04/22 21:09 - Social History Does the pt smoke?: No Smoking Status: Never smoker Does the pt drink ETOH?: Yes Does the pt have substance abuse?: No - Immunizations Immunizations are current?: Yes - POLST Patient has POLST: No PD ED PE NORMAL - General General: Alert and oriented X 3, No acute distress, Well developed/nourished - HEENT HEENT: Atraumatic, Moist mucous membranes - Neck Neck: Supple, no meningeal sign, No adenopathy - Cardiac Cardiac: RRR, No murmur - Respiratory Respiratory: No respiratory distress, Clear bilaterally - Abdomen Abdomen: Normal bowel sounds, Soft - Back Back: No CVA TTP, No spinal TTP - Derm Derm: Normal color, Warm and dry, No rash - Extremities Extremities: No deformity, No tenderness to palpate - Neuro Neuro: Alert and oriented X 3, No motor deficit. No: secondary connector armature 2-12 intact (Mild difficulty with word finding and slurring of speech.), Normal speech Eye Opening: Spontaneous Motor: Obeys Commands Verbal: Oriented GCS Score: 15 Results - Vitals Vitals: Vital Signs - 24 hr 10/02/22 10/02/22 14:35 16:00 Temperature 36.5 C Heart Rate 62 52 L Respiratory 15 19 Rate Blood Pressure 186/97 H 191/96 H O2 Saturation 97 95 Oxygen O2 Source Room air - EKG (time done) 1447 Rate: Rate (enter#) (52) Rhythm: NSR Hubert: Anterior hemiblock Intervals: Normal [place], RBBB. No: Prolonged QT QRS: LVH Compare to prior EKG: Unchanged from prior EKG Computer interpretation: Agree with computer - Labs Labs: Laboratory Tests 10/02/22 10/02/22 10/02/22 14:45 14:45 14:45 WBC 9.1 RBC 4.85 Hgb 15.0 Hct 44.9 MCV 92.6 MCH 30.9 MCHC 33.4 RDW 12.5 Plt Count 162 MPV 12.2 H Neut # (Auto) 5.1 Lymph # (Auto) 2.8 Lee # (Auto) 1.0 Eos # (Auto) 0.2 Baso # (Auto) 0.1 Absolute Nucleated RBC 0.00 Nucleated RBC % 0.0 PT INR Sodium 142 Potassium 3.7 Chloride 103 Carbon Dioxide 28 Anion Gap 11.0 BUN 29 H Creatinine 1.4 H Estimated GFR (MDRD) 48 L Glucose 114 H Calcium 10.0 Total Bilirubin 0.7 AST 28 ALT 28 Alkaline Phosphatase 91 Troponin I High Sens 9.8 Total Protein 8.0 Albumin 4.6 Globulin 3.4 Albumin/Globulin Ratio 1.4 Lipase 36 10/02/22 14:45 WBC RBC Hgb Hct MCV MCH MCHC RDW Plt Count MPV Neut # (Auto) Lymph # (Auto) Lee # (Auto) Eos # (Auto) Baso # (Auto) Absolute Nucleated RBC Nucleated RBC % PT 11.7 INR 1.0 Sodium Potassium Chloride Carbon Dioxide Anion Gap BUN Creatinine Estimated GFR (MDRD) Glucose Calcium Total Bilirubin AST ALT Alkaline Phosphatase Troponin I High Sens Total Protein Albumin Globulin Albumin/Globulin Ratio Lipase - Rads (name of study) angio head Radiology: Final report received (No evidence of acute stroke hemorrhage or mass. Old small focal left MCA distribution infarct. Mild small vessel ischemic change. Unremarkable CTA of the head without stenosis aneurysm occlusion or focal filling defect) angio neck Radiology: Final report received (Aneurysmal dilation of the ascending aorta measuring 4.7 cm. Mild bilateral proximal ICA stenosis less than 50%) PD MEDICAL DECISION MAKING - ED course Complexity details: reviewed results, re-evaluated patient, considered differential, d/w patient ED course: 87-year-old male presents emergency department for evaluation of 48 hours difficulty with word finding and slurred speech. This follows a large vessel occlusion and July for which she received Tenecteplase and was subsequently transferred to [facility] for further evaluation and treatment. Upon discharge she was started on Pradaxa 150 mg twice daily. He has been out of his Pradaxa for 2 days as it has not yet arrived in the mail. On presentation to the emergency department he is noted to be modestly hypertensive. His NIHSS is positive for mild aphasia only. We did obtain a EKG that was nonischemic. CBC and electrolytes did not show any acute worrisome findings. I did obtain a CT angio of the head that showed no acute worrisome findings. A remote old occipital infarct is noted. The CT angio of the neck reveals the patient has bilateral carotid artery stenosis less than 50%. He also has aneurysmal dilation of the ascending aorta. I discussed these incidental findings with the patient and his and they are aware. At this time the patient is stable for discharge home. Because it is important for him to remain on the Pradaxa I will prescribe 1 week of medication his initial dose is given tonight here in the emergency department. He would not benefit from repeat MRI imaging at this stage though moving forward it should be considered. Given his recent anticoagulation he would not be a candidate for repeat Tenecteplase All findings discussed with patient and his . At this time he is discharged home in stable condition. Emergent return precautions discussed. Departure - Departure Disposition: Home, Self Care Clinical Impression: Slurred speech, History of CVA (cerebrovascular accident) Aortic aneurysm Qualifiers: Aortic location: thoracic aorta Thoracic aorta location: ascending aorta Presence of rupture: without rupture Qualified Code(s): I71.21 - Aneurysm of the ascending aorta, without rupture Carotid artery stenosis Qualifiers: Laterality: bilateral Qualified Code(s): I65.23 - Occlusion and stenosis of bilateral carotid arteries Prescriptions: Dabigatran Etexilate Mesylate [Pradaxa] 150 mg PO BID #14 cap Comments: You came to the emergency department today because for the last 2 days you have begun having some slurred speech and difficulty with word finding. You did recently have a large vessel stroke in July and were treated at [facility] after he received a clot busting drug here in the emergency department. You have been out of your Pradaxa for 2 days. We did obtain CT angios of your head and neck. There is no acute hemorrhage or infarct noted. We do make incidental note of bilateral carotid artery stenosis less than 50% as well as an a sending aortic aneurysm. I advise you to discuss this with your primary care doctor and obtain referral to a vascular surgeon for longer-term follow-up. Would like you to follow close with your primary care doctor. You should receive an outpatient MRI over the next week or 2. I sent a prescription for Pradaxa to our [facility] pharmacy until your prescription arrives in the mail. If at any point you find that your symptoms worsen, you develop uncontrolled vomiting, slurred speech facial droop then please return immediately to the ER for second evaluation. NIHSS - Time Time: 14:40 - Level of Consciousness LOC Questions: (0) Answers both Q's correct LOC Commands: (0) Performs both correctly - Gaze Best Gaze: (0) Normal - Visual Visual: (0) No loss - Facial Palsy Facial Palsy: (0) Normal, symmetrical movement - Motor Arms (both separate) Motor Arm (right): (0) No drift Motor Arm (left): (0) No drift - Motor Legs (both separate) Motor Leg (right): (0) No drift Motor Leg (left): (0) No drift - Limb Ataxia Limb Ataxia: (0) Absent - Sensory Sensory: (0) Normal - Best Language Best Language: (1) [id number] - Dysarthria Dysarthria: (0) Normal - Extinction and Inattention (formally neg Extinction and inattention: (0) No abnormality
[2022-10-02 14:53] LABS: BASOPHILS # (AUTO) 0.1 10^3/uL (0.0-0.1); BASOPHILS % (AUTO) 0.7 %; EOSINOPHILS # (AUTO) 0.2 10^3/uL (0.0-0.7); HCT - HEMATOCRIT 44.9 % (42.0-52.0); LYMPHOCYTES # (AUTO) 2.8 10^3/uL (1.5-3.5); LYMPHOCYTES % (AUTO) 30.4 %; MEAN CORPUSCULAR HEMOGLOBIN 30.9 pg (27.0-31.0); MEAN CORPUSCULAR HGB CONC 33.4 g/dL (32.0-36.0); MEAN CORPUSCULAR VOLUME 92.6 fL (80.0-94.0); MEAN PLATELET VOLUME 12.2 fL (7.4-11.4); MONOCYTES % (AUTO) 10.8 %; NEUTROPHILS # (AUTO) 5.1 10^3/uL (1.5-6.6); NEUTROPHILS % (AUTO) 55.8 %; PLT - PLATELET COUNT 162 10^3/uL (130-450); RED BLOOD COUNT 4.85 10^6/uL (4.70-6.10); RED CELL DISTRIBUTION WIDTH 12.5 % (12.0-15.0); WHITE BLOOD COUNT 9.1 x10^3/uL (4.8-10.8)
--- NOTE | 2022-10-02 15:03 | XRAY Report ---
PROCEDURE: Chest 1 View X-Ray INDICATIONS: Chest Pain TECHNIQUE: One view of the chest was acquired. COMPARISON: None. FINDINGS: Surgical changes and devices: None. Lungs and pleura: No pleural effusions or pneumothorax. Lungs are clear. Mediastinum: Tortuous thoracic aorta is seen with aortic arch calcifications. Heart size is normal. Bones and chest wall: No suspicious bony lesions. Overlying soft tissues appear unremarkable. IMPRESSION: No acute cardiopulmonary pathology. Reviewed by: Carlos Enrique Aguilar MD on 10/02/2022 3:02 PM [facility] Approved by: Carlos Enrique Aguilar MD on 10/02/2022 3:02 PM PST Station ID: [id number]
[2022-10-02 15:08] LABS: ALBUMIN 4.6 g/dL (3.2-5.5); ALBUMIN/GLOBULIN RATIO 1.4 (1.0-2.2); BILIRUBIN,TOTAL 0.7 mg/dL (0.2-1.0); CREATININE 1.4 mg/dL (0.6-1.2); PT - PROTHROMBIN TIME 11.7 secs (9.9-12.6)
[2022-10-02] MEDS ORDERED: iohexoL-300 100 ML VIAL ONE (15:14)
[2022-10-02 15:18] LABS: POTASSIUM 3.7 mmol/L (3.5-5.0)
[2022-10-02] MEDS ORDERED: SODIUM CHLORIDE 0.9% 1,000 ML IV STA (15:31)
[2022-10-02] MEDS ORDERED: ENALAPRILAT 1.25 MG/ML VIAL IVP STA (16:09)
--- NOTE | 2022-10-02 16:13 | CT Report ---
PROCEDURE: ANGIO NECK W INDICATIONS: slurred speech CONTRAST: Omni 300 80ml TECHNIQUE: After the administration of intravenous contrast, 1.5 mm axial sections acquired from the aortic arch to the [place]. Coronal 3-D maximum intensity projection (MIP) and/or volume rendering ref ormats were then performed. For radiation dose reduction, the following was used: automated exposur e control, adjustment of mA and/or kV according to patient size. COMPARISON: CT chest dated 08/04/2022, CTA head from today. FINDINGS: Image quality: Excellent. Carotid system: The great vessels demonstrate a conventional anatomy as they arise from the aortic a [facility]. The ascending aorta measures 4.7 cm in diameter. This measurement is obtained from the recent [facility] CT. The origins of the common carotid arteries appear patent. The common carotid arteries demons trate normal calibers and courses. There are bilateral carotid bifurcation calcifications. There are mild, less than 50% bilateral proximal internal carotid artery stenoses. Posterior circulation: The origins of the vertebral arteries appear patent. The more superior porti ons of the vertebral arteries demonstrate normal course and caliber. They join to form a normal appe aring basilar artery. Soft tissues: Visualized neck soft tissues demonstrate no suspicious abnormalities. Thyroid is unre markable as visualized Bones: No suspicious bony lesions. Visualized cervical spine appears normally aligned. IMPRESSION: 1. Aneurysmal dilatation of the ascending aorta, measuring 4.7 cm. 2. Mild bilateral proximal internal carotid artery stenosis, less than 50%. Comment: Please refer to a separate report for CTA head findings. The estimate of stenosis included in the report of the imaging study was calculated using the NASCET method CLINICAL RECOMMENDATION STATEMENTS: In patients <35 years with an ITN detected on CT, MRI, or extrathyroidal ultrasound, the Committee re commends further evaluation with dedicated thyroid ultrasound if the nodule is "e1 cm and has no susp icious imaging features, and if the patient has normal life expectancy. In patients "e35 years with an ITN detected on CT, MRI, or extrathyroidal ultrasound, the Committee r ecommends further evaluation with dedicated thyroid ultrasound if the nodule is "e1.5 cm and has no s uspicious imaging features, and if the patient has normal life expectancy. (ACR, 2014) Reviewed by: Manolo Menjivar MD on 10/02/2022 4:11 PM PST Approved by: Manolo Menjivar MD on 10/02/2022 4:11 PM PST Station ID: [id number]
--- NOTE | 2022-10-02 16:17 | CT Report ---
PROCEDURE: ANGIO HEAD W/WO INDICATIONS: slurred speech CONTRAST: Omni 300 80ml TECHNIQUE: Precontrast 4.5 mm thick angled axial sections acquired from the foramen magnum to the vertex. Afte r the administration of intravenous contrast, 1 mm thick sections acquired through the [place] is. Postcontrast 4.5 mm thick sections then re-acquired from the foramen magnum to the vertex. 3-di mensional qoqytsr-ydhxzfsoz-mcusqagszl (MIP) and/or volume rendering reformats were acquired of the c entral intracranial vasculature. For radiation dose reduction, the following was used: automated ex posure control, adjustment of mA and/or kV according to patient size. COMPARISON: CTA neck from the same date, CT head without contrast dated 12/21/2021 FINDINGS: Image quality: Excellent. Anterior circulation: Intracranial internal carotid arteries are normal in size and flow. The flow within the paired anterior cerebral arteries is normal and symmetric. The flow within the middle cer ebral arteries is normal and symmetric. The anterior communicating artery is seen. No aneurysms are seen. Posterior circulation: Visualized portions of the vertebral arteries demonstrate normal caliber, and join to form a normal appearing basilar artery. Flow within the posterior cerebral arteries is norm al and symmetric. No aneurysms are seen. CSF spaces: Ventricles are normal in size and shape. Basal cisterns are patent. No extra-axial flu id collections. Brain: No midline shift. No intracranial bleeds or masses. Bernal-white matter interface appears int act. Old small focal left MCA distribution predominantly deep white matter infarct. Age-related volum e loss and mild small vessel ischemic change. Skull and face: Calvarium and facial bones appear intact, without suspicious lesions. Sinuses: Visualized sinuses and mastoids are clear. IMPRESSION: 1. No evidence acute stroke, hemorrhage, or mass. 2. Old small focal left MCA distribution infarct. Mild small vessel ischemic change. 3. Unremarkable CTA head. No stenosis, aneurysm, occlusion, or focal filling defect. Reviewed by: Manolo Menjivar MD on 10/02/2022 4:16 PM PST Approved by: Manolo Menjivar MD on 10/02/2022 4:16 PM PST Station ID: [id number]
[2022-10-02] MEDS ORDERED: DABIGATRAN 75 MG CAPSULE PO STA (16:28)
[2022-10-02 17:09] VITALS: BP 177/90
[2022-10-02] MEDS ORDERED: iohexoL-300 100 ML VIAL IVP ONE (17:55)
== END 2022-10-02 17:09 | disposition home or self-care (01) ==
LOC: ED 14:29
DX: I65.23 Occlusion and stenosis of bilateral carotid arteries (principal); I71.21 Aneurysm of the ascending aorta, without rupture; I10 Essential (primary) hypertension; Z86.73 Personal history of transient ischemic attack (TIA), and cerebral infarction without residual deficits
CPT/HCPCS: 36415; 70496; 70498; 71045; 80053; 83690; 84484; 85025; 85610; 93005; 99284; A9270; Q9967